=== PATIENT | male | born 1990 | race African-American/Black ===

== ENCOUNTER 2019-09-13 13:17 | Emergency (ER) | payer OTHER ==
[2019-09-13 13:30] VITALS: BMI 26.4
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
[2019-09-13 15:07] LABS: BASO % 0.7 % (0-2.0); EOS % 1.3 % (0-4.5); HEMATOCRIT 42.4 % (35.4-49); HEMOGLOBIN 14.3 GM/dL (11.7-16.9); LYMPH % 28.1 % (8-40); MCH 31.3 pg (25.7-33.7); MCHC 33.6 g/dl (32.0-35.9); MEAN PLT VOLUME 8.7 fl (7.5-11.1); MONO % 8.2 % (3.8-10.2); NEUT % 61.7 % (42.8-82.8); PLATELET COUNT 219 K/MM3 (134-434); RBC 4.56 M/mm3 (4.00-5.60); RDW 13.1 % (11.9-15.9); WHITE BLOOD COUNT 6.5 K/mm3 (4.0-10.0)
[2019-09-13 15:41] LABS: ALK PHOS 55 U/L (45-117); ANION GAP 6 MMOL/L (8-16); BILIRUBIN,TOTAL 0.4 mg/dL (0.2-1); BLOOD UREA NITROGEN 7.9 mg/dL (7-18); CALCIUM 9.1 mg/dL (8.5-10.1); CHLORIDE 106 mmol/L (98-107); CO2 28 mmol/L (21-32); GLUCOSE,RANDOM 87 mg/dL (74-106); POTASSIUM 3.7 mmol/L (3.5-5.1); SGOT/AST 15 U/L (15-37); SGPT/ALT 17 U/L (13-61); SODIUM 140 mmol/L (136-145); TOT PROT 7.3 g/dl (6.4-8.2)
[2019-09-13 15:43] LABS: EPI CELLS 10 /uL (0-25.1); HYALINE CASTS 5 /uL (0-3.1); PH,URINE 5.5 (5.0-8.0); URINE APPEARANCE CLEAR; URINE BACTERIA 7 /uL (0-1359); URINE BILIRUBIN NEGATIVE (NEGATIVE); URINE COLOR YELLOW; URINE GLUCOSE (UA) NEGATIVE (NEGATIVE); URINE KETONE TRACE (NEGATIVE); URINE LEUK ESTERASE NEGATIVE (NEGATIVE); URINE NITRITE NEGATIVE (NEGATIVE); URINE PROTEIN NEGATIVE (NEGATIVE); URINE RBC 23 /uL (0-23.9); URINE WBC 11 /uL (0-25.8)
[2019-09-13 15:51] LABS: OPIATES, URI NEGATIVE ng/ml (CUTOFF=300); URINE AMPHETAMINES NEGATIVE ng/ml (CUTOFF=500)
[2019-09-13 15:52] LABS: URINE BARBITURATES NEGATIVE ng/ml (CUTOFF=200)
[2019-09-13 15:53] LABS: COCAINE, UR NEGATIVE ng/ml (CUTOFF=300); METHADONE, UR NEGATIVE ng/ml (CUTOFF=300); PHENCYCLIDINE,URINE NEGATIVE ng/ml (CUTOFF=25); URINE BENZODIAZEPINES NEGATIVE ng/ml (CUTOFF=200)
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
--- NOTE | 2019-09-14 00:49 | PDOC ---
*Physical Exam - Vital Signs Last Vital Signs Temp Pulse Resp BP Pulse Ox 98.5 F 60 15 111/72 99 09/13/19 18:20 09/13/19 23:15 09/13/19 23:15 09/13/19 23:15 09/13/19 23:15 ED Treatment Course - LABORATORY CBC & Chemistry Diagram: 09/13/19 14:30 09/13/19 14:30 - ADDITIONAL ORDERS Additional order review: Laboratory Results 09/13/19 09/13/19 09/13/19 15:30 15:30 15:21 Sodium Potassium Chloride Carbon Dioxide Anion Gap BUN Creatinine Est GFR (CKD-EPI)AfAm Est GFR (CKD-EPI)NonAf POC Glucometer 89 Random Glucose Calcium Total Bilirubin AST ALT Alkaline Phosphatase Creatine Kinase Creatine Kinase Index CK-MB (CK-2) Troponin I Total Protein Albumin TSH Urine Color Yellow Urine Appearance Clear Urine pH 5.5 Ur Specific Thompsons 1.027 Urine Protein Negative Urine Glucose (UA) Negative Urine Ketones Trace H Urine Blood Trace Urine Nitrite Negative Urine Bilirubin Negative Urine Urobilinogen 1.0 Ur Leukocyte Esterase Negative Urine WBC (Auto) 11 Urine RBC (Auto) 23 Urine Casts (Auto) 5 U Epithel Cells (Auto) 10 Urine Bacteria (Auto) 7 Salicylates Opiates Screen Negative Methadone Screen Negative Acetaminophen Barbiturate Screen Negative Phencyclidine Screen Negative Ur Amphetamines Screen Negative MDMA (Ecstasy) Screen Negative Benzodiazepines Screen Negative Cocaine Screen Negative U Marijuana (THC) Screen Positive A* Alcohol, Quantitative 09/13/19 09/13/19 09/13/19 14:30 14:30 14:30 Sodium 140 Potassium 3.7 Chloride 106 Carbon Dioxide 28 Anion Gap 6 L BUN 7.9 Creatinine 1.0 Est GFR (CKD-EPI)AfAm 115.72 Est GFR (CKD-EPI)NonAf 99.85 POC Glucometer Random Glucose 87 Calcium 9.1 Total Bilirubin 0.4 AST 15 ALT 17 Alkaline Phosphatase 55 Creatine Kinase 331 H Creatine Kinase Index No Result Required. CK-MB (CK-2) < 1.0 Troponin I < 0.02 Total Protein 7.3 Albumin 4.0 TSH 0.85 Urine Color Urine Appearance Urine pH Ur Specific Thom[place]ons Urine Protein Urine Glucose (UA) Urine Ketones Urine Blood Urine Nitrite Urine Bilirubin Urine Urobilinogen Ur Leukocyte Esterase Urine WBC (Auto) Urine RBC (Auto) Urine Casts (Auto) U Epithel Cells (Auto) Urine Bacteria (Auto) Salicylates < 1.7 L Opiates Screen Methadone Screen Acetaminophen <2.0 Barbiturate Screen Phencyclidine Screen Ur Amphetamines Screen MDMA (Ecstasy) Screen Benzodiazepines Screen Cocaine Screen U Marijuana (THC) Screen Alcohol, Quantitative < 3 09/13/19 09/13/19 15:21 14:30 RBC 4.56 MCV 93.0 MCHC 33.6 RDW 13.1 MPV 8.7 Neutrophils % 61.7 Lymphocytes % 28.1 Monocytes % 8.2 Eosinophils % 1.3 Basophils % 0.7 POC Glucometer 89 Medical Decision Making - Medical Decision Making 09/14/19 00:46 29y M 29 y/o M with no significant PMH presenting to ED for auditory hallucinations, delusions, paranoid thoughts. No SI/HI. Evaluated by psych, recommend in patient psych admission and evaluation. Pt on waiting list for [facility], ancillary tests have been transmitted. Pending transfer. Pt in no distress at this time. No medications given throughout ED stay so far. labs wnl. CT head negative for acute process. -1:1 -continue to monitor Discharge - Discharge Information Problems reviewed: Yes Clinical Impression/Diagnosis: Hallucination Psychosis Qualifiers: Psychosis type: unspecified psychosis type Qualified Code(s): F29 - Unspecified psychosis not due to a substance or known physiological condition Condition: Stable Disposition: TRANSFER ACUTE CARE/OTHER HOSP - Follow up/Referral - Patient Discharge Instructions - Post Discharge Activity
--- NOTE | 2019-09-14 07:09 | PDOC ---
*Physical Exam - Vital Signs Last Vital Signs Temp Pulse Resp BP Pulse Ox 98.5 F 60 15 111/72 99 09/13/19 18:20 09/13/19 23:15 09/13/19 23:15 09/13/19 23:15 09/13/19 23:15 ED Treatment Course - LABORATORY CBC & Chemistry Diagram: 09/13/19 14:30 09/13/19 14:30 - ADDITIONAL ORDERS Additional order review: 09/13/19 09/13/19 15:21 14:30 RBC 4.56 MCV 93.0 MCHC 33.6 RDW 13.1 MPV 8.7 Neutrophils % 61.7 Lymphocytes % 28.1 Monocytes % 8.2 Eosinophils % 1.3 Basophils % 0.7 POC Glucometer 89 Medical Decision Making - Medical Decision Making Patient signed out by Dr. José 29 y/o M with no significant PMH presenting to ED for auditory hallucinations, delusions, paranoid thoughts. No SI/HI. Evaluated by psych, recommend in patient psych admission and evaluation. Pt on waiting list for [facility], ancillary tests have been transmitted. Pending transfer. Pt in no distress at this time. No medications given throughout ED stay so far. labs wnl. CT head negative for acute process. -1:1 -Medically cleared for transfer to [facility], pending 09/14/19 07:08 Patient signed out to Dr. José Discharge - Discharge Information Problems reviewed: Yes Clinical Impression/Diagnosis: Hallucination Psychosis Qualifiers: Psychosis type: unspecified psychosis type Qualified Code(s): F29 - Unspecified psychosis not due to a substance or known physiological condition Condition: Stable Disposition: TRANSFER ACUTE CARE/OTHER HOSP - Follow up/Referral Referrals: Bhupendra Orourke [Primary Care Provider] - - Patient Discharge Instructions - Post Discharge Activity
--- NOTE | 2019-09-14 10:17 | EKG ---
Test Reason : Blood Pressure : / mmHG Vent. Rate : 073 BPM Atrial Rate : 073 BPM P-R Int : 232 ms QRS Dur : 082 ms QT Int : 358 ms P-R-T Axes : 066 080 042 degrees QTc Int : 394 ms SINUS RHYTHM WITH 1ST DEGREE A-V BLOCK ST ELEVATION, CONSIDER EARLY REPOLARIZATION , pericarditis BORDERLINE ECG NO PREVIOUS ECGS AVAILABLE Confirmed by Satnam Graham ([id number]) on 09/14/2019 10:16:54 AM Referred By: Confirmed By:Satnam Graham
--- NOTE | 2019-09-15 01:30 | PDOC ---
*Physical Exam - Vital Signs Last Vital Signs Temp Pulse Resp BP Pulse Ox 98.7 F 85 16 112/71 100 09/14/19 16:24 09/14/19 21:18 09/14/19 16:24 09/14/19 16:24 09/14/19 21:18 ED Treatment Course - LABORATORY CBC & Chemistry Diagram: 09/13/19 14:30 09/13/19 14:30 - ADDITIONAL ORDERS Additional order review: 09/13/19 09/13/19 15:21 14:30 RBC 4.56 MCV 93.0 MCHC 33.6 RDW 13.1 MPV 8.7 Neutrophils % 61.7 Lymphocytes % 28.1 Monocytes % 8.2 Eosinophils % 1.3 Basophils % 0.7 POC Glucometer 89 Medical Decision Making - Medical Decision Making 09/15/19 06:40 29y M 29 y/o M with no significant PMH presenting to ED for auditory hallucinations, delusions, paranoid thoughts. No SI/HI. Evaluated by psych, recommend in patient psych admission and evaluation. Pt on waiting list for [facility], ancillary tests have been transmitted. Pending transfer. No events overnight, no medications given. -1:1 -pending transfer Discharge - Discharge Information Problems reviewed: Yes Clinical Impression/Diagnosis: Hallucination Psychosis Qualifiers: Psychosis type: unspecified psychosis type Qualified Code(s): F29 - Unspecified psychosis not due to a substance or known physiological condition Condition: Stable Disposition: TRANSFER ACUTE CARE/OTHER HOSP - Follow up/Referral - Patient Discharge Instructions - Post Discharge Activity
--- NOTE | 2019-09-15 07:21 | PDOC ---
*Physical Exam - Vital Signs Last Vital Signs Temp Pulse Resp BP Pulse Ox 98.7 F 58 L 16 124/78 97 09/14/19 16:24 09/15/19 06:13 09/15/19 06:13 09/15/19 06:13 09/15/19 06:13 ED Treatment Course - LABORATORY CBC & Chemistry Diagram: 09/13/19 14:30 09/13/19 14:30 - ADDITIONAL ORDERS Additional order review: 09/13/19 09/13/19 15:21 14:30 RBC 4.56 MCV 93.0 MCHC 33.6 RDW 13.1 MPV 8.7 Neutrophils % 61.7 Lymphocytes % 28.1 Monocytes % 8.2 Eosinophils % 1.3 Basophils % 0.7 POC Glucometer 89 Medical Decision Making - Medical Decision Making Received call from transfer center to confirm that patient is still a candidate for transfer A bed is not yet available 09/15/19 07:20 Discharge - Discharge Information Clinical Impression/Diagnosis: Hallucination Psychosis Qualifiers: Psychosis type: unspecified psychosis type Qualified Code(s): F29 - Unspecified psychosis not due to a substance or known physiological condition Condition: Stable Disposition: TRANSFER ACUTE CARE/OTHER HOSP - Follow up/Referral - Patient Discharge Instructions - Post Discharge Activity
--- NOTE | 2019-09-15 10:29 | PDOC ---
*Physical Exam - Vital Signs Last Vital Signs Temp Pulse Resp BP Pulse Ox 98.9 F 61 19 125/69 100 09/15/19 08:00 09/15/19 08:00 09/15/19 08:00 09/15/19 08:00 09/15/19 08:00 ED Treatment Course - LABORATORY CBC & Chemistry Diagram: 09/13/19 14:30 09/13/19 14:30 - ADDITIONAL ORDERS Additional order review: 09/13/19 09/13/19 15:21 14:30 RBC 4.56 MCV 93.0 MCHC 33.6 RDW 13.1 MPV 8.7 Neutrophils % 61.7 Lymphocytes % 28.1 Monocytes % 8.2 Eosinophils % 1.3 Basophils % 0.7 POC Glucometer 89 Medical Decision Making - Medical Decision Making Patient signed out by Dr. José Received call from transfer center to confirm that patient is still a candidate for transfer A bed is not yet available 09/15/19 07:20 social work manager spoke with [facility] transfer center; uptdatded them regarding patient's negative COVID swab He is pending placement when a bed availble Pending psych evaluation today by Dr. Gonzalez Patient's mother called, Palmira Sheldon, , requesting an update 09/15/19 10:17 Ext [id number], Spoke with oncology social worker/case management Lyndsay; patient remains on the waiting list for a bed 09/15/19 11:21 Dr. Miller, Called patient's mother called, Palmira Monalisa, , who was not available 09/15/19 12:33 Received call from patient's mother, Palmira Mcgarryalla, and updated her 09/15/19 12:42 Patient signed out to Dr. José Discharge - Discharge Information Problems reviewed: Yes Clinical Impression/Diagnosis: Hallucination Psychosis Qualifiers: Psychosis type: unspecified psychosis type Qualified Code(s): F29 - Unspecified psychosis not due to a substance or known physiological condition Condition: Stable Disposition: TRANSFER ACUTE CARE/OTHER HOSP - Follow up/Referral Referrals: Bhupendra Orourke [Primary Care Provider] - - Patient Discharge Instructions - Post Discharge Activity
--- NOTE | 2019-09-15 16:48 | PN ---
Progress Note (short form) - Note Progress Note: Patient seen for Psych re eval. waiting for In Patient Bed. CONID test Negative. MS: alert, pleasant buty admits to paranoia and thought broadcasting and control.. REC: 1) Transfer to Psych when bed becomes available. 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
--- NOTE | 2019-09-16 06:11 | PDOC ---
*Physical Exam - Vital Signs Last Vital Signs Temp Pulse Resp BP Pulse Ox 98.3 F 63 18 121/80 99 09/15/19 20:44 09/15/19 20:44 09/15/19 20:44 09/15/19 20:44 09/15/19 20:44 ED Treatment Course - LABORATORY CBC & Chemistry Diagram: 09/13/19 14:30 09/13/19 14:30 - ADDITIONAL ORDERS Additional order review: 09/13/19 09/13/19 15:21 14:30 RBC 4.56 MCV 93.0 MCHC 33.6 RDW 13.1 MPV 8.7 Neutrophils % 61.7 Lymphocytes % 28.1 Monocytes % 8.2 Eosinophils % 1.3 Basophils % 0.7 POC Glucometer 89 Medical Decision Making - Medical Decision Making 09/16/19 06:09 29y M presenting with hallucinations and paranoid delusions. Has been in ER for 4 days, waiting for bed to be available at [facility] psychiatric facility. Social work and transfer center contacted, pt on waiting list. seen and evaluated by psychiatrist here, rec for inpatient psych. -No acute events overnight -COVID negative. -1:1 -pending transfer Discharge - Discharge Information Problems reviewed: Yes Clinical Impression/Diagnosis: Hallucination Psychosis Qualifiers: Psychosis type: unspecified psychosis type Qualified Code(s): F29 - Unspecified psychosis not due to a substance or known physiological condition Condition: Stable Disposition: TRANSFER ACUTE CARE/OTHER HOSP - Follow up/Referral Referrals: Bhupendra Orourke [Primary Care Provider] - - Patient Discharge Instructions - Post Discharge Activity - Transfer to Acute Care Facility Receiving Facility Name: [facility]
[2019-09-16 06:57] VITALS: TEMP 97.9
[2019-09-16 14:12] VITALS: BP 121/69; PULSE 63
== END 2019-09-16 14:00 | disposition short-term general hospital (02) ==
LOC: JER 13:17
DX: R44.3 Hallucinations, unspecified (principal); F29 Unspecified psychosis not due to a substance or known physiological condition
CPT/HCPCS: 36415; 70450-TC; 71045-TC-FY; 80053; 80307; 81003; 82550; 82553; 82962; 84443; 84484; 85025; 93005; 93010; 99285-25; U0003